=== PATIENT | male | born 1960 | race Caucasian/White ===

== ENCOUNTER → 2017-05-18 | Outpatient (REF) | payer OTHER ==
[~2017-05-18] MED LIST: /PRAV20TA PO; ACET500C PO; AMLO10TAB OR; ASPI325T OR; ASPI325T PO; CARV25TA OR; EXCETAB OR; HYDR25TA7 OR; ISOS30BRAN PO; LISI40TA OR; MECL25TA2 PO; MULTIVIT PO; NITR0.4S SL; PLAV75TA2 OR; PRIL20CA PO; SIMV40TA2 OR; SPIR50TA2 OR
[2017-05-18 20:14] LABS: MEAN CORPUSCULAR HEMOGLOBIN 30.3 pg (27.0-33.0); MEAN CORPUSCULAR HGB CONC 33.8 g/dl (32.0-36.5); MEAN CORPUSCULAR VOLUME 89.7 fl (80.0-96.0); RED CELL DISTRIBUTION WIDTH 12.3 % (11.5-14.5); WHITE BLOOD COUNT 8.8 10^3/uL (4.0-10.0)
[2017-05-18 20:59] LABS: ALBUMIN 3.7 GM/DL (3.2-5.2); ALBUMIN/GLOBULIN RATIO 1.09 (1.00-1.93); BILIRUBIN,TOTAL 0.5 MG/DL (0.2-1.0); CALCIUM LEVEL 8.8 MG/DL (8.5-10.1); CREATININE FOR GFR 1.32 MG/DL (0.70-1.30); FREE T4 1.06 NG/DL (0.76-1.46); GLOMERULAR FILTRATION RATE 59.7 (>56); POTASSIUM SERUM 3.9 MEQ/L (3.5-5.1); TOTAL PROTEIN 7.1 GM/DL (6.4-8.2)
== END ==
LOC: M SFHCLERA 15:55
PROVIDERS: ATTEND Family Medicine
DX: I25.5 Ischemic cardiomyopathy (principal); I25.10 Atherosclerotic heart disease of native coronary artery without angina pectoris

== ENCOUNTER → 2017-05-24 | Outpatient (REF) | payer OTHER ==
[2017-05-24 21:30] LABS: CALCIUM LEVEL 8.8 MG/DL (8.5-10.1); CREATININE FOR GFR 1.5 MG/DL (0.70-1.30); GLOMERULAR FILTRATION RATE 51.5 (>56); POTASSIUM SERUM 3.8 MEQ/L (3.5-5.1)
== END ==
LOC: M SFHCLERA 15:51
PROVIDERS: ATTEND Family Medicine
DX: R39.9 Unspecified symptoms and signs involving the genitourinary system (principal)

== ENCOUNTER → 2017-07-11 | Outpatient (CLI) | payer OTHER ==
--- NOTE | 2017-07-12 08:43 | REP ---
RENAL ULTRASOUND: CLINICAL: Stage III chronic renal disease. TECHNIQUE: Tuttle scale and color evaluation using curved array transducer. FINDINGS: Ultrasound examination demonstrates the bilateral kidneys to be normal in contour, size, echogenicity and reniform shape without hydronephrosis, nephrolithiasis, or renal mass lesion. No perinephric fluid collections are identified. The right kidney measures 11.1 x 5.6 x 5.8 cm and includes a 2 cm simple mid pole cyst. Left kidney measures 11.0 x 5.5 x 4.8 cm and includes a 1.3 cm simple mid pole cyst. The bladder is unremarkable on current examination. IMPRESSION: Solitary bilateral renal cysts as noted above. Essentially normal renal ultrasound. No hydronephrosis. Unreviewed
== END ==
LOC: M RAD 09:10
PROVIDERS: ATTEND Family Medicine
DX: N28.1 Cyst of kidney, acquired (principal); N18.3 Chronic kidney disease, stage 3 (moderate)

== ENCOUNTER → 2017-07-11 | Outpatient (CLI) | payer OTHER ==
--- NOTE | 2017-07-11 21:17 | ECHO ---
DATE OF PROCEDURE: 07/11/2017 REFERRING PHYSICIAN: Dr. Travis Gonzalez Study was performed on 07/11/2017 for indication of coronary artery disease and ischemic cardiomyopathy. The patient measures 170 cm and weighs 104 kg. DIMENSIONS: IVS: 1.3 LV: 4.4 LVPW: 1.2 LA: 3.8 Aorta: 3.6 IVC: 1.0 FINDINGS: The study is of fair technical quality. Left ventricle is of normal size and grossly normal contractility. Apical segments of left ventricle were poorly seen, and I cannot rule out subtle wall motion abnormalities in that area. Overall ejection fraction (EF) is going to be though normal or near normal. Right ventricle is also normal size and systolic function. Both atria appear to be at least mildly enlarged. Aortic, mitral and tricuspid valves appear normal. Pulmonic valve was not well visualized. No pericardial effusion is noted. Inferior vena cava is normal size. Aortic root and aortic arch appear normal. Abdominal aorta was not well seen. Pulmonic valve was not well seen. Doppler interrogation reveals no significant aortic stenosis or insufficiency. There is mild mitral insufficiency and trace tricuspid insufficiency. Calculated pulmonary artery pressure is within normal limits. Mitral inflow pattern and tissue Doppler imaging of mitral annulus revealed grade 1 diastolic dysfunction (mitral E velocity 69, A velocity 80, E prime septal 5.4 and E prime lateral 8.8 cm/s). CONCLUSIONS: 1. Study is of fair technical quality. 2. Normal left ventricular (LV) size with mild left ventricular hypertrophy (LVH) and grossly preserved LV systolic function. Apical segments of left ventricle were poorly seen. Grade 1 diastolic dysfunction. 3. No significant valvular disease. 4. Normal central venous pressure and probably normal pulmonary artery pressure. COMMENTS: Subacute bacterial endocarditis (SBE) prophylaxis is not recommended. Study points to hypertensive heart disease but does not provide conclusive evidence of coronary artery disease.
== END ==
LOC: M CARPUL 10:04
PROVIDERS: ATTEND Family Medicine
DX: I25.5 Ischemic cardiomyopathy (principal); I25.10 Atherosclerotic heart disease of native coronary artery without angina pectoris

== ENCOUNTER → 2017-08-23 | Outpatient (REF) | payer OTHER ==
[2017-08-24 12:20] LABS: ANION GAP 6 MEQ/L (8-16); BLOOD UREA NITROGEN 25 MG/DL (7-18); CARBON DIOXIDE LEVEL 30 MEQ/L (21-32); CHLORIDE LEVEL 106 MEQ/L (98-107); CREATININE FOR GFR 1.36 MG/DL (0.70-1.30); GLOMERULAR FILTRATION RATE 57.5 (>56); GLUCOSE, FASTING 113 MG/DL (70-105); POTASSIUM SERUM 4.1 MEQ/L (3.5-5.1); SODIUM LEVEL 142 MEQ/L (136-145)
[2017-08-24 13:41] LABS: APPEARANCE, URINE CLEAR (CLEAR); BACTERIA, URINE AUTO NEGATIVE (NEGATIVE); BILIRUBIN, URINE AUTO NEGATIVE (NEGATIVE); BLOOD, URINE BLOOD NEGATIVE (NEGATIVE); COLOR, URINE YELLOW (YELLOW); GLUCOSE, URINE (UA) AUTO NEGATIVE (NEGATIVE); KETONE, URINE AUTO NEGATIVE (NEGATIVE); LEUKOCYTE ESTERASE, URINE AUTO NEGATIVE (NEGATIVE); MUCUS, URINE SMALL (NEGATIVE); NITRITE, URINE AUTO NEGATIVE (NEGATIVE); PROTEIN, URINE AUTO NEGATIVE (NEGATIVE); RBC, URINE AUTO 0 /HPF (0-3); SQUAMOUS EPITHELIAL CELL UR AU 0 /HPF (0-6); UROBILINOGEN, URINE AUTO 0.2 mg/dL (0.0-2.0); WBC, URINE AUTO 1 /HPF (0-3)
== END ==
LOC: M SFHCLERA 15:40
DX: N18.3 Chronic kidney disease, stage 3 (moderate) (principal)

== ENCOUNTER 2018-02-09 11:09 | Inpatient (IN) | payer OTHER ==
[2018-02-09 12:00] LABS: BASO % 0.1 % (0.0-1.0); HEMATOCRIT 43.9 % (42.0-52.0); HEMOGLOBIN 15.2 g/dl (13.5-17.5); IMMATURE GRANULOCYTE % 0.3 % (0-3.0); LYMPH % 5.8 % (24.0-44.0); MEAN CORPUSCULAR HEMOGLOBIN 30.7 pg (27.0-33.0); MEAN CORPUSCULAR HGB CONC 34.6 g/dl (32.0-36.5); MEAN CORPUSCULAR VOLUME 88.7 fl (80.0-96.0); MONO # 0.6 10^3/uL (0.0-0.8); MONO % 3.5 % (0.0-5.0); NEUTROPHILS # 15.8 10^3/uL (1.8-7.7); NEUTROPHILS % 90.3 % (36.0-66.0); PLATELET COUNT, AUTOMATED 182 10^3/uL (150-450); RED BLOOD COUNT 4.95 10^6/uL (4.30-6.10); RED CELL DISTRIBUTION WIDTH 12.5 % (11.5-14.5); WHITE BLOOD COUNT 17.5 10^3/uL (4.0-10.0)
[2018-02-09 12:18] LABS: INR 1.04; PARTIAL THROMBOPLASTIN TIME 24.6 SECONDS (25.4-37.6); PROTHROMBIN TIME 13.7 SECONDS (12.1-14.4)
[2018-02-09] MEDS: ONDANSETRON 4MG/2ML VIAL (J2405) IV (12:26)
[2018-02-09] MEDS: MORPHINE 2 MG/ML 1ML SYRINGE (J2270) IV (12:27)
[2018-02-09] MEDS: NS 1,000 ML IV ×3 (12:27→17:30)
[2018-02-09 12:35] LABS: ALBUMIN 3.6 GM/DL (3.2-5.2); ALBUMIN/GLOBULIN RATIO 0.92 (1.00-1.93); ALKALINE PHOSPHATASE 81 U/L (45-117); ALT/SGPT 27 U/L (12-78); AMYLASE 30 U/L (25-115); ANION GAP 9 MEQ/L (8-16); AST/SGOT 20 U/L (7-37); BILIRUBIN,DIRECT 0.2 MG/DL (0.0-0.2); BLOOD UREA NITROGEN 21 MG/DL (7-18); CARBON DIOXIDE LEVEL 27 MEQ/L (21-32); CHLORIDE LEVEL 105 MEQ/L (98-107); CREATININE FOR GFR 1.28 MG/DL (0.70-1.30); GLOMERULAR FILTRATION RATE > 60.0 (>56); GLUCOSE, FASTING 136 MG/DL (70-100); LIPASE 88 U/L (73-393); POTASSIUM SERUM 3.4 MEQ/L (3.5-5.1); SODIUM LEVEL 141 MEQ/L (136-145); TOTAL PROTEIN 7.5 GM/DL (6.4-8.2)
[2018-02-09] MEDS ORDERED: ISOVUE-370 76% 100ML VIAL (Q9967) As Ordered (13:48)
[2018-02-09] MEDS: POTASSIUM CHLORIDE 10 MEQ SR TABLET PO (14:00)
[2018-02-09] MEDS: CIPROFLOXACIN 400 MG in APPROPRIATE DILUENT 1 EA IV (14:25)
[2018-02-09] MEDS: metroNIDAZOLE 500 MG in APPROPRIATE DILUENT 1 EA IV (15:58)
[2018-02-09] MEDS ORDERED: MORPHINE 4 MG/ML 1ML VIAL/SYRINGE (J2270) IV (16:30)
[2018-02-09] MEDS ORDERED: HEPARIN SOD (PORCINE) 5000 UNITS/ML VIAL SC (16:30)
[2018-02-09] MEDS ORDERED: ONDANSETRON 4MG/2ML VIAL (J2405) IV (16:30)
[2018-02-09 18:04] LABS: MEAN CORPUSCULAR HEMOGLOBIN 30.8 pg (27.0-33.0); MEAN CORPUSCULAR VOLUME 87.9 fl (80.0-96.0); PLATELET COUNT, AUTOMATED 160 10^3/uL (150-450); RED BLOOD COUNT 4.55 10^6/uL (4.30-6.10); RED CELL DISTRIBUTION WIDTH 12.4 % (11.5-14.5); WHITE BLOOD COUNT 17.7 10^3/uL (4.0-10.0)
[2018-02-09] MEDS: CARVedilol 12.5 MG TAB PO (21:50)
[2018-02-09 22:28] LABS: HEMATOCRIT 39.9 % (42.0-52.0); MEAN CORPUSCULAR HEMOGLOBIN 31.5 pg (27.0-33.0); MEAN CORPUSCULAR HGB CONC 35.1 g/dl (32.0-36.5); MEAN CORPUSCULAR VOLUME 89.7 fl (80.0-96.0); PLATELET COUNT, AUTOMATED 153 10^3/uL (150-450); RED BLOOD COUNT 4.45 10^6/uL (4.30-6.10); RED CELL DISTRIBUTION WIDTH 12.7 % (11.5-14.5); WHITE BLOOD COUNT 17.8 10^3/uL (4.0-10.0)
[2018-02-10] MEDS: metroNIDAZOLE 500 MG in APPROPRIATE DILUENT 1 EA IV ×2 (00:44→08:20)
[2018-02-10] MEDS: NS 1,000 ML IV ×3 (03:32→22:18)
[2018-02-10] MEDS: CIPROFLOXACIN 400 MG in APPROPRIATE DILUENT 1 EA IV ×2 (03:32→14:23)
[2018-02-10 05:36] LABS: BASO % 0.2 % (0.0-1.0); EOS # 0.1 10^3/uL (0.0-0.50); EOS % 0.4 % (0.0-3.0); HEMATOCRIT 38.2 % (42.0-52.0); HEMOGLOBIN 13.2 g/dl (13.5-17.5); IMMATURE GRANULOCYTE % 0.4 % (0-3.0); LYMPH # 1.5 10^3/uL (1.5-4.5); LYMPH % 10.6 % (24.0-44.0); MEAN CORPUSCULAR HEMOGLOBIN 30.9 pg (27.0-33.0); MEAN CORPUSCULAR HGB CONC 34.6 g/dl (32.0-36.5); MEAN CORPUSCULAR VOLUME 89.5 fl (80.0-96.0); MONO # 0.9 10^3/uL (0.0-0.8); MONO % 6.5 % (0.0-5.0); NEUTROPHILS # 11.3 10^3/uL (1.8-7.7); NEUTROPHILS % 81.9 % (36.0-66.0); PLATELET COUNT, AUTOMATED 164 10^3/uL (150-450); RED BLOOD COUNT 4.27 10^6/uL (4.30-6.10); RED CELL DISTRIBUTION WIDTH 12.6 % (11.5-14.5); WHITE BLOOD COUNT 13.8 10^3/uL (4.0-10.0)
[2018-02-10 05:58] LABS: ANION GAP 6 MEQ/L (8-16); BLOOD UREA NITROGEN 18 MG/DL (7-18); CALCIUM LEVEL 8.1 MG/DL (8.5-10.1); CARBON DIOXIDE LEVEL 28 MEQ/L (21-32); CHLORIDE LEVEL 108 MEQ/L (98-107); CREATININE FOR GFR 1.15 MG/DL (0.70-1.30); GLOMERULAR FILTRATION RATE > 60.0 (>56); GLUCOSE, FASTING 126 MG/DL (70-100); POTASSIUM SERUM 3.5 MEQ/L (3.5-5.1); SODIUM LEVEL 142 MEQ/L (136-145)
[2018-02-10] MEDS: LISINOPRIL 20 MG TAB PO (10:05)
[2018-02-10] MEDS: CARVedilol 12.5 MG TAB PO ×2 (10:05→22:50)
[2018-02-10] MEDS: PANTOPRAZOLE 40MG INJ (PROTONIX) (C9113) IV (10:05)
[2018-02-10 11:12] LABS: HEMATOCRIT 38.9 % (42.0-52.0); HEMOGLOBIN 13.5 g/dl (13.5-17.5); MEAN CORPUSCULAR HEMOGLOBIN 31.3 pg (27.0-33.0); MEAN CORPUSCULAR HGB CONC 34.7 g/dl (32.0-36.5); PLATELET COUNT, AUTOMATED 173 10^3/uL (150-450); RED BLOOD COUNT 4.32 10^6/uL (4.30-6.10); RED CELL DISTRIBUTION WIDTH 12.7 % (11.5-14.5); WHITE BLOOD COUNT 13.2 10^3/uL (4.0-10.0)
[2018-02-10] MEDS: VANCOMYCIN ORAL SOL 250MG/5ML ORAL SYRINGE PO ×3 (12:00→17:33)
[2018-02-10] MEDS: PRAVASTATIN 20 MG TAB PO (22:49)
[2018-02-11] MEDS: VANCOMYCIN ORAL SOL 250MG/5ML ORAL SYRINGE PO ×2 (00:27→05:38)
[2018-02-11] MEDS: NS 1,000 ML IV (08:18)
[2018-02-11] MEDS: ASPIRIN 325 MG TAB PO (08:25)
[2018-02-11] MEDS: CARVedilol 12.5 MG TAB PO (08:25)
[2018-02-11] MEDS: OMEPRAZOLE 20 MG CAP PO (08:25)
[2018-02-11] MEDS: LISINOPRIL 20 MG TAB PO (08:25)
[2018-02-11 08:52] LABS: HEMATOCRIT 38.1 % (42.0-52.0); HEMOGLOBIN 13.2 g/dl (13.5-17.5); MEAN CORPUSCULAR HEMOGLOBIN 30.8 pg (27.0-33.0); MEAN CORPUSCULAR HGB CONC 34.6 g/dl (32.0-36.5); MEAN CORPUSCULAR VOLUME 88.8 fl (80.0-96.0); PLATELET COUNT, AUTOMATED 163 10^3/uL (150-450); RED BLOOD COUNT 4.29 10^6/uL (4.30-6.10); RED CELL DISTRIBUTION WIDTH 12.4 % (11.5-14.5); WHITE BLOOD COUNT 10.8 10^3/uL (4.0-10.0)
[2018-02-11 09:13] LABS: ANION GAP 7 MEQ/L (8-16); BLOOD UREA NITROGEN 16 MG/DL (7-18); CALCIUM LEVEL 7.9 MG/DL (8.5-10.1); CARBON DIOXIDE LEVEL 26 MEQ/L (21-32); CHLORIDE LEVEL 110 MEQ/L (98-107); CREATININE FOR GFR 0.96 MG/DL (0.70-1.30); GLOMERULAR FILTRATION RATE > 60.0 (>56); GLUCOSE, FASTING 129 MG/DL (70-100); POTASSIUM SERUM 3.7 MEQ/L (3.5-5.1); SODIUM LEVEL 143 MEQ/L (136-145)
== END 2018-02-11 10:20 | disposition home or self-care (01) | DRG 248 ==
LOC: M ED 11:09 → M ED INP 16:18 → M MS5PR 22:26
DX: A04.72 Enterocolitis due to Clostridium difficile, not specified as recurrent (principal); I13.0 Hypertensive heart and chronic kidney disease with heart failure and stage 1 through stage 4 chronic kidney disease, or unspecified chronic kidney disease; I50.22 Chronic systolic (congestive) heart failure; N18.3 Chronic kidney disease, stage 3 (moderate); D72.829 Elevated white blood cell count, unspecified; K21.9 Gastro-esophageal reflux disease without esophagitis; I25.10 Atherosclerotic heart disease of native coronary artery without angina pectoris; I25.2 Old myocardial infarction; Z95.2 Presence of prosthetic heart valve; Z79.82 Long term (current) use of aspirin; Z79.899 Other long term (current) drug therapy; I44.7 Left bundle-branch block, unspecified; Z87.891 Personal history of nicotine dependence; A04.0 Enteropathogenic Escherichia coli infection

== ENCOUNTER 2018-04-18 11:51 | Day surgery (SDC) | payer OTHER ==
[~2018-04-18 11:51] MED LIST changes: -/PRAV20TA PO; -ACET500C PO; -AMLO10TAB OR; -ASPI325T OR; -ASPI325T PO; -CARV25TA OR; -EXCETAB OR; -HYDR25TA7 OR; -ISOS30BRAN PO; +LIDOCAINE 2% INJ 100 MG/5 ML SDV (FOR ANES.) As Ordered; -LISI40TA OR; -MECL25TA2 PO; -MULTIVIT PO; -NITR0.4S SL; -PLAV75TA2 OR; -PRIL20CA PO; +PROPOFOL 200 MG/20 ML VIAL As Ordered; -SIMV40TA2 OR; -SPIR50TA2 OR
[2018-04-18] MEDS: NS 1,000 ML IV (12:00)
[2018-04-18] MEDS ORDERED: PROPOFOL 200 MG/20 ML VIAL As Ordered ×2 (14:56→15:07)
== END 2018-04-18 15:54 | disposition home or self-care (01) ==
LOC: M OPP 11:51
DX: R93.3 Abnormal findings on diagnostic imaging of other parts of digestive tract (principal); K62.5 Hemorrhage of anus and rectum; A09 Infectious gastroenteritis and colitis, unspecified; D12.5 Benign neoplasm of sigmoid colon; K57.30 Diverticulosis of large intestine without perforation or abscess without bleeding; K63.89 Other specified diseases of intestine; Z86.19 Personal history of other infectious and parasitic diseases; Z95.5 Presence of coronary angioplasty implant and graft; R07.9 Chest pain, unspecified; I25.10 Atherosclerotic heart disease of native coronary artery without angina pectoris; I25.2 Old myocardial infarction; I10 Essential (primary) hypertension; E78.5 Hyperlipidemia, unspecified; R01.1 Cardiac murmur, unspecified; M19.90 Unspecified osteoarthritis, unspecified site; G43.909 Migraine, unspecified, not intractable, without status migrainosus; F12.10 Cannabis abuse, uncomplicated; Z79.82 Long term (current) use of aspirin; Z79.899 Other long term (current) drug therapy; Z87.891 Personal history of nicotine dependence
CPT/HCPCS: 45385

== ENCOUNTER → 2018-06-21 | Outpatient (REF) | payer OTHER | LOC: M SFHCLERA 08:00 | DX: I12.9 Hypertensive chronic kidney disease with stage 1 through stage 4 chronic kidney disease, or unspecified chronic kidney disease (principal) ==

== ENCOUNTER → 2018-10-17 | Outpatient (REF) | payer OTHER ==
[~2018-10-17] MED LIST changes: +/PRAV20TA PO; +ACET1TAB55 PO; +ACET500C PO; +AMLO10TAB OR; +ASPI325T PO; +ASPI325T25 PO; +CARV12.5 PO; +CARV25TA OR; +EXCETAB OR; +FLAG500T PO; +HYDR25TA7 OR; +ISOS30BRAN PO; -LIDOCAINE 2% INJ 100 MG/5 ML SDV (FOR ANES.) As Ordered; +LISI20TA3 PO; +LISI40TA OR; +MECL25TA2 PO; +MULT1TAB10 PO; +MULTIVIT PO; +NITR0.4S SL; +OMEP20CA3 PO; +PLAV75TA2 OR; +PRAV20TA2 PO; +PRAV40TA2 PO; +PRIL20CA PO; -PROPOFOL 200 MG/20 ML VIAL As Ordered; +SIMV40TA2 OR; +SPIR50TA2 OR; +VANC125C2 PO; +VANC1CAP6 PO
[2018-10-17 11:42] LABS: BASO # 0.1 10^3/uL (0.0-0.2); BASO % 0.9 % (0.0-1.0); EOS # 0.3 10^3/uL (0.0-0.50); EOS % 3.9 % (0.0-3.0); HEMATOCRIT 42.7 % (42.0-52.0); HEMOGLOBIN 14.6 g/dl (13.5-17.5); LYMPH # 1.9 10^3/uL (1.5-4.5); LYMPH % 24.8 % (24.0-44.0); MEAN CORPUSCULAR HGB CONC 34.2 g/dl (32.0-36.5); MEAN CORPUSCULAR VOLUME 90.7 fl (80.0-96.0); MONO # 0.9 10^3/uL (0.0-0.8); MONO % 11.4 % (0.0-5.0); NEUTROPHILS # 4.6 10^3/uL (1.8-7.7); NEUTROPHILS % 58.9 % (36.0-66.0); PLATELET COUNT, AUTOMATED 176 10^3/uL (150-450); RED BLOOD COUNT 4.71 10^6/uL (4.30-6.10); WHITE BLOOD COUNT 7.8 10^3/uL (4.0-10.0)
[2018-10-17 12:05] LABS: ALBUMIN 3.7 GM/DL (3.2-5.2); ALT/SGPT 26 U/L (12-78); BILIRUBIN,TOTAL 0.5 MG/DL (0.2-1.0); BLOOD UREA NITROGEN 28 MG/DL (7-18); CALCIUM LEVEL 8.5 MG/DL (8.5-10.1); CARBON DIOXIDE LEVEL 26 MEQ/L (21-32); CHLORIDE LEVEL 106 MEQ/L (98-107); CHOLESTEROL LEVEL 162 MG/DL (<200); CHOLESTEROL RISK RATIO 5.586 (<5); CREATININE FOR GFR 1.17 MG/DL (0.70-1.30); GLOMERULAR FILTRATION RATE > 60.0 (>56); GLUCOSE, FASTING 106 MG/DL (70-100); HDL CHOLESTEROL 29 MG/DL (>40); LDL CHOLESTEROL 85 MG/DL (<100); NON-HDL-C 133 MG/DL; NT-PRO BNP 27 PG/ML (<125); POTASSIUM SERUM 3.7 MEQ/L (3.5-5.1); SODIUM LEVEL 140 MEQ/L (136-145); TRIGLYCERIDES LEVEL 240 MG/DL (<150)
[2018-10-17 12:15] LABS: MALB URINE SIEMENS 6.9 MG/L; MAU/CREAT RATIO 4.8 MCG/MG (0.0-30.0)
[2018-10-17 14:54] LABS: HEMOGLOBIN A1c 5.7 %
== END ==
LOC: M SFHCLERA 08:05
PROVIDERS: ATTEND Family Medicine
DX: I50.9 Heart failure, unspecified (principal)

== ENCOUNTER → 2018-10-30 | Outpatient (CLI) | payer OTHER ==
--- NOTE | 2018-10-31 00:19 | ECHO ---
DATE OF PROCEDURE: 10/30/2018 REFERRING PHYSICIAN: Dr. Gonzáles INDICATION: Congestive heart failure. Height 170 cm, weight 103 kg. DIMENSIONS: IVS: 1.4 LV: 3.6 LVPW: 1.4 LA: 3.9 Aorta: 3.6 IVC: 1.3 Mitral E wave velocity: 75 E wave velocity: 76 E prime septal: 5.7 E prime lateral: 7.7 FINDINGS: The study is of acceptable technical quality. The patient is in sinus rhythm. Left ventricle is of normal size, and there is mild left ventricular hypertrophy and preserved left ventricular (LV) systolic function. Estimated left ventricular ejection fraction (LVEF) around 65-70%. Right ventricle appears also normal size and systolic function. Left atrium is normal size. Right atrium was poorly seen but grossly appears normal from subcostal views. Aortic valve has three leaflets and normal mobility. There is also normally appearing mitral valve. Same applies for tricuspid valve. Pulmonic valve was poorly seen. No pericardial effusion is present. Inferior vena cava is normal size. Aortic root, aortic arch and abdominal aorta all appear normal. Doppler interrogation of aortic valve reveals no stenosis or insufficiency. There is trace mitral insufficiency and trace tricuspid insufficiency. Calculated pulmonary artery pressure is within normal limits. Mitral inflow pattern and tissue Doppler imaging of mitral annulus revealed likely grade 1 diastolic dysfunction. CONCLUSIONS: 1. Study is of fair technical quality. 2. Normal left ventricular (LV) size with mild left ventricular hypertrophy, preserved LV systolic function and grade 1 diastolic dysfunction. 3. No hemodynamically significant valvular disease. 4. Likely normal central venous pressure and normal pulmonary artery pressure. COMMENT: Subacute bacterial endocarditis (SBE) prophylaxis is not recommended. Overall study most consistent with hypertensive heart disease.
== END ==
LOC: M CARPUL 10:12
PROVIDERS: ATTEND Family Medicine
DX: I50.9 Heart failure, unspecified (principal)

== ENCOUNTER → 2018-11-14 | Outpatient (CLI) | payer OTHER ==
[~2018-11-14] MED LIST changes: -/PRAV20TA PO; +ASPI-255 PO; -ASPI325T25 PO; +PRAV1TAB39 PO; -VANC125C2 PO; +VANC125C3 PO
--- NOTE | 2018-11-14 13:23 | REP ---
Thoracic spine five views: Comparison is a PA and lateral chest dated 02/10/2018. Vertebral body heights and alignment are normal. There is moderate degenerative disc disease throughout the thoracic spine, unchanged. The pedicles are unremarkable. Impression: No compression deformity or listhesis. Multilevel degenerative disc disease. Electronically Signed by Remi Goff MD 11/14/2018 01:15 P
--- NOTE | 2018-11-14 13:26 | REP ---
Lumbar spine seven views: Comparison is the abdomen CT dated 02/09/2018. Vertebral body heights, interspacing alignment are normal. There is no compression deformity or listhesis. There is no spondylolysis. There is multilevel moderate facet osteoarthritis. The pedicles and sacroiliac articulations are unremarkable except for mild left sacroiliac osteoarthritis. Impression: No compression deformity or listhesis. Moderate facet osteoarthritis. Moderate left sacroiliac osteoarthritis. Electronically Signed by Remi Goff MD 11/14/2018 01:17 P
== END ==
LOC: M LRY 12:40
PROVIDERS: ATTEND Physician Assistant
DX: M47.817 Spondylosis without myelopathy or radiculopathy, lumbosacral region (principal); M46.98 Unspecified inflammatory spondylopathy, sacral and sacrococcygeal region

== ENCOUNTER → 2019-02-19 | Outpatient (REF) | payer OTHER ==
[~2019-02-19] MED LIST changes: +LISI20TA20 PO; -LISI20TA3 PO; +OMEP1CAP73 PO; -OMEP20CA3 PO
[2019-02-19 13:01] LABS: BLOOD UREA NITROGEN 19 MG/DL (7-18); CALCIUM LEVEL 8.9 MG/DL (8.5-10.1); CARBON DIOXIDE LEVEL 32 MEQ/L (21-32); CHLORIDE LEVEL 105 MEQ/L (98-107); CHOLESTEROL LEVEL 126 MG/DL (<200); CHOLESTEROL RISK RATIO 3.818 (<5); CREATININE FOR GFR 1.29 MG/DL (0.70-1.30); GLOMERULAR FILTRATION RATE > 60.0 (>56); GLUCOSE, FASTING 129 MG/DL (70-100); HDL CHOLESTEROL 33 MG/DL (>40); LDL CHOLESTEROL 51 MG/DL (<100); NON-HDL-C 93 MG/DL; POTASSIUM SERUM 3.8 MEQ/L (3.5-5.1); SODIUM LEVEL 141 MEQ/L (136-145); TRIGLYCERIDES LEVEL 209 MG/DL (<150)
== END ==
LOC: M SFHCLERA 08:05
PROVIDERS: ATTEND Family Medicine
DX: E78.5 Hyperlipidemia, unspecified (principal); I12.9 Hypertensive chronic kidney disease with stage 1 through stage 4 chronic kidney disease, or unspecified chronic kidney disease

== ENCOUNTER → 2019-07-24 | Outpatient (REF) | payer OTHER ==
[~2019-07-24] MED LIST changes: +OMEP-172 PO; -OMEP1CAP73 PO
[2019-07-24 11:32] LABS: BLOOD UREA NITROGEN 17 MG/DL (7-18); CALCIUM LEVEL 8.9 MG/DL (8.5-10.1); CARBON DIOXIDE LEVEL 31 MEQ/L (21-32); CHLORIDE LEVEL 105 MEQ/L (98-107); CHOLESTEROL LEVEL 101 MG/DL (<200); CREATININE FOR GFR 1.13 MG/DL (0.70-1.30); GLOMERULAR FILTRATION RATE > 60.0 (>56); GLUCOSE, FASTING 107 MG/DL (70-100); HDL CHOLESTEROL 34 MG/DL (>40); LDL CHOLESTEROL 47 MG/DL (<100); NON-HDL-C 67 MG/DL; POTASSIUM SERUM 3.8 MEQ/L (3.5-5.1); SODIUM LEVEL 141 MEQ/L (136-145); TRIGLYCERIDES LEVEL 101 MG/DL (<150)
== END ==
LOC: M SFHCLERA 08:18
PROVIDERS: ATTEND Family Medicine
DX: I12.9 Hypertensive chronic kidney disease with stage 1 through stage 4 chronic kidney disease, or unspecified chronic kidney disease (principal)

== ENCOUNTER 2019-12-03 14:27 | Inpatient (IN) | payer OTHER ==
[~2019-12-03] VITALS: Ht 170.2 cm; Wt 108.8 kg
[~2019-12-03 14:27] MED LIST changes: -OMEP-172 PO; +OMEP1CAP73 PO
[2019-12-03] MEDS ORDERED: doesnt know meds (14:37)
[2019-12-03] MEDS ORDERED: NS 1,000 ML IV ONE (15:00)
[2019-12-03] MEDS ORDERED: AMLO25TA PO (15:01)
[2019-12-03] MEDS ORDERED: EZET10TA21 PO (15:01)
[2019-12-03] MEDS ORDERED: ISOVUE-370 76% 100ML VIAL As Ordered ONE (15:35)
[2019-12-03 15:39] LABS: INR 0.98; PROTHROMBIN TIME 12.7 SECONDS (11.8-14.0)
[2019-12-03 15:40] LABS: PARTIAL THROMBOPLASTIN TIME 26.7 SECONDS (25.0-38.4)
[2019-12-03 15:52] LABS: ALBUMIN 3.9 GM/DL (3.2-5.2); BILIRUBIN,DIRECT 0.2 MG/DL (0.0-0.2); BILIRUBIN,TOTAL 0.9 MG/DL (0.2-1.0); TOTAL PROTEIN 7.7 GM/DL (6.4-8.2)
[2019-12-03 15:59] LABS: BASO % 0.2 % (0.0-1.0); HEMATOCRIT 48.5 % (42.0-52.0); HEMOGLOBIN 16.5 g/dl (13.5-17.5); LYMPH # 0.8 10^3/uL (1.5-5.0); LYMPH % 4.6 % (24.0-44.0); MEAN CORPUSCULAR HEMOGLOBIN 30.3 pg (27.0-33.0); MEAN CORPUSCULAR VOLUME 89.2 fl (80.0-96.0); MONO # 0.4 10^3/uL (0.0-0.8); MONO % 2.3 % (0.0-5.0); NEUTROPHILS # 16.7 10^3/uL (1.5-8.5); NEUTROPHILS % 92.5 % (36.0-66.0); PLATELET COUNT, AUTOMATED 216 10^3/uL (150-450); RED BLOOD COUNT 5.44 10^6/uL (4.30-6.10); WHITE BLOOD COUNT 18.1 10^3/uL (4.0-10.0)
[2019-12-03] MEDS ORDERED: CIPROFLOXACIN 400 MG in IV 1 EA IV ONE (16:45)
[2019-12-03] MEDS ORDERED: metroNIDAZOLE 500 MG in IV 1 EA IV ONE (16:45)
[2019-12-03] MEDS ORDERED: MORPHINE 4 MG/ML 1ML VIAL/SYRINGE (J2270) IV PRN (17:00)
[2019-12-03] MEDS ORDERED: ONDANSETRON 4MG/2ML VIAL IV PRN (17:00)
--- NOTE | 2019-12-03 17:03 | REP ---
REASON: Left lower quadrant pain. CONTRAST: 100 mL [id number]. COMPARISON: 02/09/2018 There is no change in the lung bases. The liver, gallbladder, spleen, pancreas, adrenal glands, and kidneys are unchanged. There are bilateral renal cysts, status quo. The abdominal aorta and para-aortic regions are unchanged. There is focal ectasia of the infrarenal abdominal aorta, which measures 2.9 cm in its greatest AP dimension. There is no para-aortic adenopathy. Once again, there is mural thickening of the distal transverse and descending colon with pericolonic fatty infiltration, seen in a fashion essentially unchanged from the prior exam. No free fluid or free air is present. Note is again made of rather extensive appearing sigmoid colon and descending colon diverticulosis. There is no evidence of an intrapelvic or intra-abdominal mass or adenopathy. The osseous structures are unchanged. There is some evidence of chronic bilateral sacroiliitis seen as areas of sclerosis in both sacral and iliac sides of the SI joints. This is stable. IMPRESSION: 1. Distal transverse colon and descending colon mural thickening with fatty infiltration, consistent with colitis. The appearance of this is essentially unchanged when compared to the prior exam of 02/09/2018. 2. Unchanged bilateral renal cysts. 3. Evidence of chronic sacroiliitis. Does the patient have a history of Crohn disease or other inflammatory bowel disease which can be associated with chronic sacroiliitis? Electronically Signed by Akash Howe DO 12/04/2019 08:59 A
--- NOTE | 2019-12-03 17:11 | HPEPDOC ---
General Date of Admission Date of Service: Dec 03, 2019 Chief Complaint The patient is a 59-year-old male admitted with a reason for visit of Rectal bleeding. Source: Patient, Old records Exam Limitations: No limitations Timing/Duration: Other (since last night) Severity: Moderate Associated Symptoms: Nausea, Other (, abdominal pain) History of Present Illness This is a 59 years old white male with past medical history of coronary artery disease status post RI, status post PCI with stent, chronic systolic congestive heart failure with EF of 30%. CK D, stage III, hypertension, GERD, he was a colostomy admitted with the similar complaints in 02/09/2018 and again he presented with chief complaints of rectal bleeding with some nausea and lower abdominal pain. According to patient, he noticed bright blood blood per rectum since last night followed by some nausea and generalized burning abdominal pain at the lower abdomen with no radiation, 7/10 on a scale not relieved with any food arrest and not exacerbated by any position, associated with nausea but no vomiting, no diarrhea. Home Medications Scheduled Amlodipine Besylate (Amlodipine Besylate) 2.5 Mg Tablet, 2.5 MG PO DAILY, (Reported) Aspirin (Aspirin EC) 325 Mg Tabec, 325 MG PO DAILY, (Reported) Carvedilol (Carvedilol) 12.5 Mg Tab, 12.5 MG PO BID, (Reported) Ezetimibe (Ezetimibe) 10 Mg Tablet, 10 MG PO DAILY, (Reported) Lisinopril/Hydrochlorothiazide (Lisinopril-Hctz 20-25 mg Tab) 1 Tab Tab, 1 TAB PO DAILY, (Reported) Multivitamins (Thera M Plus Tablet) 1 Each Tablet, 1 TAB PO DAILY, (Reported) Omeprazole (Omeprazole) 20 Mg Cap, 20 MG PO DAILY, (Reported) Pravastatin Sodium (Pravastatin Sodium) 80 Mg Tablet, 80 MG PO QHS, (Reported) Allergies Coded Allergies: No Known Allergies (Verified , 03/08/11) Past Medical History Medical History CAD status post RI, status post PCI with stent, chronic congestive heart failure with EF of 30%, security stage III, hypertension, GERD, old left bundle branch block, ORIF of left ankle Surgical History ORIF of left ankle Colonoscopy in 2018 Family History Family history reviewed. No history of diabetes or cancer or GI bleed Social History * Smoker: former Smoker Alcohol: Denies Drugs: denies A-FIB/CHADSVASC A-FIB History Current/History of A-Fib/PAF?: No Review of Systems Constitutional: Denies: Chills, Fever, Malaise, Night Sweats, Weakness, Fatigue, Weight Loss, Lethargy, Other Eyes: Denies: Pain, Vision change, Conjunctivae inflammation, Eyelid inflammation, Redness, Other ENT: Denies: Head Aches, Ear Pain, Dysphagia, Sinus Congestion, Post Nasal Drip, Sore Throat, Epistaxis, Other Symptoms Skin: Denies: Rash, Lesions, Jaundice, Bruising, Itching, Dry, Breakdown, Nail Changes, Other Pulmonary: Denies: Dyspnea, Cough, Pleuritic Chest Pain, Other Symptoms Cardiovascular: Denies: Chest Pain, Palpitations, Orthopnea, Paroxysmal Noc. Dyspnea, Edema, Lt Headedness, Other Symptoms Gastrointestinal: Reports: Nausea, Abdominal Pain, Other Symptoms (, rectal bleed) Genitourinary: Denies: Dysuria, Frequency, Incontinence, Hematuria, Retention, Other Symptoms Hematologic: Denies: Bruising, Bleeding Excessively, Petecchia, Purpura, Enlarged Lymph Nodes, Other Hematologic Endocrine: Denies: Polydipsia, Polyphagia, Polyuria, Heat Intolerance, Cold Intolerance, Other Endocrine Sx Musculoskeletal: Denies: Neck Pain, Back Pain, Shoulder Pain, Arm Pain, Hand Pain, Leg Pain, Foot Pain, Joint Pain, Muscle Pain, Spasms, Other Symptoms Neurological: Denies: Weakness, Numbness, Incoordination, Change in speech, Confusion, Seizures, Other Symptoms Physical Examination General Exam: Positive: Alert, Cooperative Eye Exam: Positive: PERRLA, Conjunctiva & lids normal ENT Exam: Positive: Atraumatic, Mucous membr. moist/pink Neck Exam: Positive: Supple Chest Exam: Positive: Clear to auscultation, Normal air movement Heart Exam: Positive: Rate Normal Abdomen Exam: Positive: Soft, Tenderness (positive tenderness at the bilateral lower abdomen on polyps. Patient has slight distention of abdomen. Bowel sounds are exaggerated) Extremity Exam: Positive: Normal pulses Skin Exam: Positive: Nl turgor and temperature Neuro Exam: Positive: Strength at 5/5 X4 ext, Cranial Nerves 3-12 NL Psych Exam: Positive: Mental status NL Vital Signs Vital Signs Date Time Temp Pulse Resp B/P (MAP) Pulse Ox O2 Delivery O2 Flow Rate FiO2 4/28/20 16:13 66 188/86 (120) 77 163/71 (101) 71 143/76 (98) 12/03/19 14:51 Room Air 12/03/19 14:28 97.3 16 98 Laboratory Data Labs 24H Laboratory Tests 2 12/03/19 15:04: Immature Granulocyte % (Auto) 0.4, Neutrophils (%) (Auto) 92.5H, Lymphocytes (%) (Auto) 4.6L, Monocytes (%) (Auto) 2.3, Eosinophils (%) (Auto) 0.0, Basophils (%) (Auto) 0.2, Neutrophils # (Auto) 16.7H, Lymphocytes # (Auto) 0.8L, Monocytes # (Auto) 0.4, Eosinophils # (Auto) 0.0, Basophils # (Auto) 0.0, Nucleated Red Blood Cells % (auto) 0.0 12/03/19 15:05: Prothrombin Time 12.7, Prothromb Time International Ratio 0.98, Activated Partial Thromboplast Time 26.7, Total Bilirubin 0.9, Direct Bilirubin 0.2, Aspartate Amino Transf (AST/SGOT) 22, Alanine Aminotransferase (ALT/SGPT) 28, Alkaline Phosphatase 87, Total Protein 7.7, Albumin 3.9, Albumin/Globulin Ratio 1.03 12/03/19 15:10: POC Glucose (Misc Panel) 153H, POC Sodium (Misc Panel) 139, POC Potassium (Misc Panel) 3.6, POC Chloride (Misc Panel) 101, POC Total CO2 (Misc Panel) 26.0, POC Blood Urea Nitrogen (Misc Panel 22, POC Ionized Calcium (Misc Panel) 4.6, POC Lactate (Misc Panel) 1.90, POC Creatinine (Misc Panel) 0.9, POC Hematocrit (Misc Panel) 48.0 CBC/BMP Laboratory Tests 12/03/19 15:04 Problems (1) Acute hemorrhagic colitis Status: Acute Problem Text: 59 years old white male presented with hemorrhagic colitis. Patient had been admitted in 2018 with a similar complaint and his colitis and resolved with IV antibiotics. Following that he had outpatient colonoscopy done with Dr. ochoa on 04/18/2018, which showed moderate diverticulosis in sigmoid colon and descending colon muscle while hypertrophy and mild lumen narrowing, 110 mm polyp in sigmoid colon, which was resected with hot snare and retrieved. Admit patient to [facility] floor with telemetry H&H every 8 hours for at least 24 hours IV fluids normal saline at 75 mL per hour Transfuse if H&H drops under 7 Patient has been started on Cipro and Flagyl and will continue the same . Patient's WBC count on presentation was 18.1. This is CBC otherwise normal with normal CMP Patient was treated with similar episode in 2018, but he did not follow with GI for colonoscopy GI consult with Dr. Devante Dodd has been requested for possible colonoscopy once is clinically stable . We'll continue patient's home meds DVT prophylaxis with bilateral SCDs Nothing by mouth except meds Activity as tolerated (2) Chronic systolic CHF (congestive heart failure) Status: Chronic Problem Text: Well compensated Continue home meds (3) HTN (hypertension) Status: Chronic Problem Text: Continue home meds (4) CKD (chronic kidney disease) stage 3, GFR 30-59 ml/min Status: Chronic Problem Text: Stable continue home meds (5) CAD (coronary artery disease) Status: Chronic Problem Text: Stable continue home meds (6) Chronic GERD Status: Chronic Problem Text: Stable continue home meds Plan / VTE VTE Prophylaxis Ordered?: Yes VANIA LAWSON MD Dec 03, 2019 17:11
[2019-12-03] MEDS ORDERED: PRAV80TA2 PO (17:18)
[2019-12-03] MEDS ORDERED: VITMTA PO (17:18)
[2019-12-03] MEDS: CARVedilol 12.5 MG TAB PO SCH (18:29)
[2019-12-03] MEDS: NS 1,000 ML IV SCH (19:37)
[2019-12-03] MEDS ORDERED: ACETAMINOPHEN TAB 650MG DOSE (2X325MG) PO PRN (19:45)
[2019-12-03] MEDS: PRAVASTATIN 20 MG TAB PO SCH (20:52)
[2019-12-03 21:23] LABS: HEMATOCRIT 41.9 % (42.0-52.0); MEAN CORPUSCULAR HEMOGLOBIN 30.6 pg (27.0-33.0); MEAN CORPUSCULAR HGB CONC 34.4 g/dl (32.0-36.5); PLATELET COUNT, AUTOMATED 182 10^3/uL (150-450); RED BLOOD COUNT 4.71 10^6/uL (4.30-6.10)
[2019-12-03 21:36] LABS: HEMOGLOBIN 14.4 g/dl (13.5-17.5)
[2019-12-03 22:00] VITALS: BP 146/70
[2019-12-04] MEDS: metroNIDAZOLE 500 MG in IV 1 EA IV SCH ×3 (01:33→17:33)
[2019-12-04] MEDS: CIPROFLOXACIN 400 MG in IV 1 EA IV SCH ×2 (05:13→18:52)
[2019-12-04] MEDS: CARVedilol 12.5 MG TAB PO SCH ×2 (05:13→17:34)
[2019-12-04] MEDS: NS 1,000 ML IV SCH ×2 (05:13→20:36)
[2019-12-04 06:00] VITALS: BP 164/94
[2019-12-04 06:03] LABS: HEMATOCRIT 41.9 % (42.0-52.0); HEMOGLOBIN 14.2 g/dl (13.5-17.5); MEAN CORPUSCULAR HEMOGLOBIN 30.5 pg (27.0-33.0); MEAN CORPUSCULAR HGB CONC 33.9 g/dl (32.0-36.5); MEAN CORPUSCULAR VOLUME 90.1 fl (80.0-96.0); PLATELET COUNT, AUTOMATED 171 10^3/uL (150-450); RED BLOOD COUNT 4.65 10^6/uL (4.30-6.10); WHITE BLOOD COUNT 15.7 10^3/uL (4.0-10.0)
[2019-12-04 06:50] LABS: ALT/SGPT 23 U/L (12-78); BILIRUBIN,TOTAL 0.7 MG/DL (0.2-1.0); BLOOD UREA NITROGEN 18 MG/DL (7-18); CALCIUM LEVEL 8.4 MG/DL (8.5-10.1); CARBON DIOXIDE LEVEL 28 MEQ/L (21-32); CHLORIDE LEVEL 106 MEQ/L (98-107); CREATININE FOR GFR 0.97 MG/DL (0.70-1.30); GLOMERULAR FILTRATION RATE > 60.0 (>56); GLUCOSE, FASTING 133 MG/DL (70-100); POTASSIUM SERUM 3.5 MEQ/L (3.5-5.1); SODIUM LEVEL 138 MEQ/L (136-145); TOTAL PROTEIN 6.1 GM/DL (6.4-8.2)
[2019-12-04 06:52] VITALS: BP 142/88
[2019-12-04] MEDS: ASPIRIN 325 MG TAB PO SCH (08:57)
[2019-12-04] MEDS: OMEPRAZOLE 20 MG CAP PO SCH (08:57)
[2019-12-04 14:00] VITALS: BP 154/92
--- NOTE | 2019-12-04 15:45 | IPNPDOC ---
Subjective Date Seen The patient was seen on 12/04/19. Subjective Chief Complaint/HPI Patient feels much better wishes to restart eating now. His WBC count also has gone down General: Denies: ROS Unobtainable, Chills, Night Sweats, Fatigue, Malaise, Normal Appetite, Other Symptoms Constitutional: Denies: Chills, Fever, Malaise, Night Sweats, Weakness, Fatigue, Weight Loss, Lethargy, Other Skin: Denies: Rash, Lesions, Jaundice, Bruising, Itching, Dry, Breakdown, Nail Changes, Other Pulmonary: Denies: Dyspnea, Cough, Pleuritic Chest Pain, Other Symptoms Cardiovascular: Denies: Chest Pain, Palpitations, Orthopnea, Paroxysmal Noc. Dyspnea, Edema, Lt Headedness, Other Symptoms Gastrointestinal: Reports: Abdominal Pain Genitourinary: Denies: Dysuria, Frequency, Incontinence, Hematuria, Retention, Other Symptoms Hematologic: Denies: Bruising, Bleeding Excessively, Petecchia, Purpura, Enlarged Lymph Nodes, Other Hematologic Musculoskeletal: Denies: Neck Pain, Back Pain, Shoulder Pain, Arm Pain, Hand Pain, Leg Pain, Foot Pain, Joint Pain, Muscle Pain, Spasms, Other Symptoms Neurological: Denies: Weakness, Numbness, Incoordination, Change in speech, Confusion, Seizures, Other Symptoms Objective Physical Examination General Exam: Positive: Alert, Cooperative Eye Exam: Positive: PERRLA, Conjunctiva & lids normal ENT Exam: Positive: Atraumatic, Mucous membr. moist/pink Neck Exam: Positive: Supple Chest Exam: Positive: Clear to auscultation, Normal air movement Heart Exam: Positive: Rate Normal Abdomen Exam: Positive: Soft, Tenderness (positive tenderness at the bilateral lower abdomen on polyps. Patient has slight distention of abdomen. Bowel sounds are exaggerated) Extremity Exam: Positive: Normal pulses Skin Exam: Positive: Nl turgor and temperature Neuro Exam: Positive: Strength at 5/5 X4 ext, Cranial Nerves 3-12 NL Psych Exam: Positive: Mental status NL Assessment /Plan Problems (1) Acute hemorrhagic colitis Status: Acute Problem Text: Patient is improving very well Continue IV fluids Start clear liquid diet Continue IV antibiotics, Cipro and Flagyl Spoke with Dr. Devante Dodd. 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 Continue present meds Once patient is clinically stable and will be discharged and can get the repeat colonoscopy done as an outpatient (2) Chronic systolic CHF (congestive heart failure) Status: Chronic Problem Text: Stable continue home meds (3) Chronic GERD Status: Chronic Problem Text: Stable continue home meds (4) HTN (hypertension) Status: Chronic Problem Text: Stable continue home meds (5) CKD (chronic kidney disease) stage 3, GFR 30-59 ml/min Status: Chronic Problem Text: Continue home meds (6) CAD (coronary artery disease) Status: Chronic Problem Text: Continue home meds Plan/VTE VTE Prophylaxis Ordered?: Yes VS, I&O, 24H, Fishbone Vital Signs/I&O Vital Signs Date Time Temp Pulse Resp B/P (MAP) Pulse Ox O2 Delivery O2 Flow Rate FiO2 12/04/19 14:00 99.1 58 18 154/92 (112) 97 Room Air I&O- Last 24 Hours up to 6 AM 12/04/19 06:00 Intake Total 2025 ml Output Total 325 ml Balance 1700 ml Laboratory Data 24H LABS Laboratory Tests 2 12/03/19 21:00: Nucleated Red Blood Cells % (auto) 0.0 12/04/19 05:38: Nucleated Red Blood Cells % (auto) 0.0, Anion Gap 4L, Glomerular Filtration Rate > 60.0, Calcium Level 8.4L, Total Bilirubin 0.7, Aspartate Amino Transf (AST/SGOT) 15, Alanine Aminotransferase (ALT/SGPT) 23, Alkaline Phosphatase 67, Total Protein 6.1#L, Albumin 3.0#L, Albumin/Globulin Ratio 0.97L CBC/BMP Laboratory Tests 12/03/19 21:00 12/04/19 05:38 VANIA LAWSON MD Dec 04, 2019 15:45
--- NOTE | 2019-12-04 16:39 | ECGEPIP ---
[facility] - ED Test Date: 2019-12-03 Pat Name: FRITZ DOWNS Department: Room: - Gender: Male [employer]: CT : 1960 Requested By: GREGG SALEH PA-C. Order Number: [id number] Reading MD: Fabi Walker Measurements Intervals [place] Rate: 65 P: 64 ND: 168 QRS: -12 QRSD: 95 T: 49 QT: 403 QTc: 420 Interpretive Statements SINUS RHYTHM WITH SINUS ARRHYTHMIA NSTTW abnormalities NO PRIOR Electronically Signed on 12-04-2019 16:39:10 EDT by Fabi Walker
[2019-12-04] MEDS: PRAVASTATIN 20 MG TAB PO SCH (20:36)
[2019-12-04 22:00] VITALS: BP 159/91
[2019-12-05] MEDS: metroNIDAZOLE 500 MG in IV 1 EA IV SCH ×2 (00:33→08:15)
[2019-12-05 05:28] VITALS: BP 159/91
[2019-12-05] MEDS: CARVedilol 12.5 MG TAB PO SCH (05:28)
[2019-12-05] MEDS: CIPROFLOXACIN 400 MG in IV 1 EA IV SCH (05:28)
[2019-12-05 06:00] VITALS: BP 159/90
[2019-12-05] MEDS: OMEPRAZOLE 20 MG CAP PO SCH (08:15)
[2019-12-05] MEDS: ASPIRIN 325 MG TAB PO SCH (08:15)
[2019-12-05] MEDS ORDERED: CIPR-249 PO (10:27)
[2019-12-05] MEDS ORDERED: FLAG500T PO (10:27)
--- NOTE | 2019-12-05 12:03 | DS.PDOC ---
Discharge Summary General Date of Admission Dec 03, 2019 at 16:52 Date of Discharge 12/05/19 Discharge Summary PROCEDURES PERFORMED DURING STAY: None. ADMITTING DIAGNOSES: 1. Acute hemorrhagic colitis. DISCHARGE DIAGNOSES: 1. Acute hemorrhagic colitis, CAD, chronic systolic congestive heart failure, CK D3, hypertension, GERD COMPLICATIONS/CHIEF COMPLAINT: Acute Hemorrhagic Colitis. HISTORY OF PRESENT ILLNESS: This is a 59 years old white male with past medical history of coronary artery disease status post ND, status post PCI with stent, chronic systolic congestive heart failure with EF of 30%. CK D, stage III, hypertension, GERD, he was a colostomy admitted with the similar complaints in 02/09/2018 and again he presented with chief complaints of rectal bleeding with some nausea and lower abdominal pain. According to patient, he noticed bright blood blood per rectum since last night followed by some nausea and generalized burning abdominal pain at the lower abdomen with no radiation, 7/10 on a scale not relieved with any food arrest and not exacerbated by any position, associated with nausea but no vomiting, no diarrhea.. HOSPITAL COURSE: She was admitted with the diagnosis of hemorrhagic colitis. He had a colonoscopy done and past few years and had 1 polyp which was removed. Otherwise was negative. Patient was started on IV fluids, IV antibiotics and kept nothing by mouth initially. Patient responded very well to the conservative medical management. His abdominal pain has lessened in last 3 days. He was restarted on his regular diet which he tolerated very well. His WBC count has come down to 15.7. He is asymptomatic, afebrile and wishes to go home. Patient. Patient will be discharged home on by mouth Cipro, Flagyl for 7 more days and has been advised to continue low residue diet and follow with his GI and PCP in one week.. DISCHARGE MEDICATIONS: Please see below. ALLERGIES: Please see below. PHYSICAL EXAMINATION ON DISCHARGE: VITAL SIGNS: Please see below. GENERAL: Within normal limits HEENT: PERRLA. Extraocular muscles intact NECK: Supple CARDIOVASCULAR EXAMINATION: S1, S2, regular RESPIRATORY EXAMINATION: Clear to A&P ABDOMINAL EXAMINATION: , Soft, nontender, bowel sounds present. No organomegaly EXTREMITIES: Normal SKIN: Normal NEUROLOGICAL EXAMINATION: Focal motor sensory deficit PSYCHIATRIC EXAMINATION: Normal LABORATORY DATA: Please see below. IMAGING: CT abdomen and pelvis:1. Distal transverse colon and descending colon mural thickening with fatty infiltration, consistent with colitis. The appearance of this is essentially unchanged when compared to the prior exam of 02/09/2018. 2. Unchanged bilateral renal cysts. 3. Evidence of chronic sacroiliitis. Does the patient have a history of Crohn disease or other inflammatory bowel disease which can be associated with chronic sacroiliitis? PROGNOSIS: Good ACTIVITY: As tolerated. DIET: Low residue diet DISCHARGE PLAN: Discharged home DISPOSITION: 01 Home, Self-Care. DISCHARGE INSTRUCTIONS: 1. As per discharge instructions. ITEMS TO FOLLOWUP ON ON OUTPATIENT: 1. Follow with his PCP and GI in one week as an outpatient. DISCHARGE CONDITION: Stable. TIME SPENT ON DISCHARGE: 39 minutes. Vital Signs/I&Os Vital Signs Date Time Temp Pulse Resp B/P (MAP) Pulse Ox O2 Delivery O2 Flow Rate FiO2 12/05/19 06:00 98.0 66 18 159/90 (113) 96 Room Air I&O- Last 24 Hours up to 6 AM 12/05/19 06:00 Intake Total 2405 ml Output Total 1450 ml Balance 955 ml Discharge Medications Scheduled Amlodipine Besylate (Amlodipine Besylate) 2.5 Mg Tablet, 2.5 MG PO DAILY, (Reported) Aspirin (Aspirin EC) 325 Mg Tabec, 325 MG PO DAILY, (Reported) Carvedilol (Carvedilol) 12.5 Mg Tab, 12.5 MG PO BID, (Reported) Ciprofloxacin HCl (Cipro) 500 Mg Tablet, 500 MG PO BID Ezetimibe (Ezetimibe) 10 Mg Tablet, 10 MG PO DAILY, (Reported) Lisinopril/Hydrochlorothiazide (Lisinopril-Hctz 20-25 mg Tab) 1 Tab Tab, 1 TAB PO DAILY, (Reported) Metronidazole (Flagyl) 500 Mg Tablet, 1 TAB PO BID Multivitamins (Thera M Plus Tablet) 1 Each Tablet, 1 TAB PO DAILY, (Reported) Omeprazole (Omeprazole) 20 Mg Cap, 20 MG PO DAILY, (Reported) Pravastatin Sodium (Pravastatin Sodium) 80 Mg Tablet, 80 MG PO QHS, (Reported) Allergies Coded Allergies: No Known Allergies (Verified , 03/08/11) VANIA LAWSON MD Dec 05, 2019 12:03
== END 2019-12-05 11:40 | disposition home or self-care (01) | DRG 249 ==
LOC: M ED 14:27 → M ED INP 16:52 → ENRESERV 18:03 → M MSPAV 18:42
PROVIDERS: ADMIT Internal Medicine; ATTEND Internal Medicine
DX: K52.9 Noninfective gastroenteritis and colitis, unspecified (principal); I13.0 Hypertensive heart and chronic kidney disease with heart failure and stage 1 through stage 4 chronic kidney disease, or unspecified chronic kidney disease; I50.32 Chronic diastolic (congestive) heart failure; N18.3 Chronic kidney disease, stage 3 (moderate); I25.10 Atherosclerotic heart disease of native coronary artery without angina pectoris; K21.9 Gastro-esophageal reflux disease without esophagitis; I25.2 Old myocardial infarction; Z95.2 Presence of prosthetic heart valve; Z79.899 Other long term (current) drug therapy; Z79.82 Long term (current) use of aspirin

== ENCOUNTER 2019-12-08 00:49 | Emergency (ER) | payer OTHER ==
[~2019-12-08] VITALS: Ht 170.2 cm; Wt 109.1 kg
[~2019-12-08 00:49] MED LIST changes: +AMLO25TA PO; +CIPR-249 PO; +EZET10TA21 PO; +PRAV80TA2 PO; +VITMTA PO; +doesnt know meds
[2019-12-08] MEDS ORDERED: KETOROLAC 30 MG/ML 1ML VIAL IV ONE (03:00)
[2019-12-08 04:08] LABS: BLOOD UREA NITROGEN 18 MG/DL (7-18); CALCIUM LEVEL 8.4 MG/DL (8.5-10.1); CARBON DIOXIDE LEVEL 29 MEQ/L (21-32); CHLORIDE LEVEL 106 MEQ/L (98-107); CPK CREATINE PHOSPHOKINASE 138 U/L (39-308); CREATININE FOR GFR 0.98 MG/DL (0.70-1.30); GLOMERULAR FILTRATION RATE > 60.0 (>56); GLUCOSE, FASTING 120 MG/DL (70-100); MAGNESIUM LEVEL 1.9 MG/DL (1.8-2.4); POTASSIUM SERUM 3.7 MEQ/L (3.5-5.1); SODIUM LEVEL 140 MEQ/L (136-145)
[2019-12-08] MEDS ORDERED: AUGM875T28 PO (04:51)
[2019-12-08 05:13] VITALS: BP 139/79
== END 2019-12-08 05:14 | disposition home or self-care (01) ==
LOC: M ED 00:49
DX: R25.2 Cramp and spasm (principal); K52.9 Noninfective gastroenteritis and colitis, unspecified; F17.210 Nicotine dependence, cigarettes, uncomplicated; Z79.899 Other long term (current) drug therapy
CPT/HCPCS: 80048; 82550; 83735; 96374; 99284; J1885

== ENCOUNTER → 2020-12-31 | Outpatient (CLI) | payer OTHER ==
[~2020-12-31] MED LIST changes: +AUGM875T28 PO; +GOOD81CH2 PO; +PROBCAP14 PO
== END ==
LOC: M LABSMTC 11:54
PROVIDERS: ATTEND Anesthesiology
DX: Z01.818 Encounter for other preprocedural examination (principal); Z11.52 Encounter for screening for COVID-19

== ENCOUNTER 2021-01-05 07:54 | Day surgery (SDC) | payer OTHER ==
[~2021-01-05] VITALS: Ht 170.2 cm; Wt 98.9 kg
[~2021-01-05 07:54] MED LIST changes: +NS 1,000 ML IV ONE
[2021-01-05] MEDS ORDERED: LIDOCAINE 2% 100MG/5ML SDV (FOR ANES.) As Ordered ONE (08:53)
[2021-01-05] MEDS ORDERED: propofoL 200 MG/20 ML VIAL As Ordered ONE ×2 (08:53→09:07)
--- NOTE | 2021-01-05 09:41 | ROOR ---
Patient Name: Jaleel Mayberry Procedure Date: 01/05/2021 9:00 AM Date of : 1960 Age: 60 Room: [facility] Gender: Male Note Status: Finalized Procedure: Colonoscopy Indications: Abnormal CT of the GI tract, Follow-up of ischemic colitis Providers: Daryn Lopez MD Referring MD: RUTH JACOBS MD Requesting Provider: Medicines: Monitored Anesthesia Care Complications: No immediate complications. Procedure: Pre-Anesthesia Assessment: - The heart rate, respiratory rate, oxygen saturations, blood pressure, adequacy of pulmonary ventilation, and response to care were monitored throughout the procedure. The Colonoscope was introduced through the anus and advanced to 10 cm into the ileum. The colonoscopy was performed without difficulty. The patient tolerated the procedure well. The quality of the bowel preparation was good. Findings: The perianal and digital rectal examinations were normal. Five sessile polyps were found in the hepatic flexure, ascending colon and cecum. The polyps were diminutive in size. These polyps were removed with a cold snare. Resection and retrieval were complete. Multiple small and large-mouthed diverticula were found in the sigmoid colon. There was evidence of diverticular spasm. Internal hemorrhoids were found during retroflexion. The hemorrhoids were moderate. The exam was otherwise without abnormality on direct and retroflexion views. Biopsies for histology were taken with a cold forceps from the transverse colon, descending colon and sigmoid colon for evaluation of microscopic colitis. Impression: - Five diminutive polyps at the hepatic flexure, in the ascending colon and in the cecum, removed with a cold snare. Resected and retrieved. - Moderate diverticulosis in the sigmoid colon. There was evidence of diverticular spasm. - Moderate Internal hemorrhoids. - The examination of the colon and terminal ileum was otherwise normal on direct and retroflexion views. - Biopsies were taken with a cold forceps from the transverse colon, descending colon and sigmoid colon for evaluation of microscopic colitis. Recommendation: - Repeat colonoscopy in 3 years for surveillance. Procedure Code(s): --- Professional --- 76786, Colonoscopy, flexible; with removal of tumor(s), polyp(s), or other lesion(s) by snare technique 26113, 59, Colonoscopy, flexible; with biopsy, single or multiple Diagnosis Code(s): --- Professional --- K63.5, Polyp of colon K64.8, Other hemorrhoids K55.9, Vascular disorder of intestine, unspecified K57.30, Diverticulosis of large intestine without perforation or abscess without bleeding R93.3, Abnormal findings on diagnostic imaging of other parts of digestive tract CPT copyright 2019 [employer]. All rights reserved. The codes documented in this report are preliminary and upon retail sales specialist review may be revised to meet current compliance requirements. Daryn oLpez MD Daryn Lopez MD 01/05/2021 9:40:36 AM Electronically signed by Daryn Lopez MD Number of Addenda: 0 Note Initiated On: 01/05/2021 9:00 AM Estimated Blood Loss: Estimated blood loss: none.
[2021-01-05 10:12] VITALS: BP 117/70
== END 2021-01-05 10:20 | disposition home or self-care (01) ==
LOC: M OPP 07:54
PROVIDERS: ATTEND Internal Medicine Gastroenterology
DX: K63.5 Polyp of colon (principal); K64.8 Other hemorrhoids; K55.9 Vascular disorder of intestine, unspecified; K57.30 Diverticulosis of large intestine without perforation or abscess without bleeding; R93.3 Abnormal findings on diagnostic imaging of other parts of digestive tract; I25.119 Atherosclerotic heart disease of native coronary artery with unspecified angina pectoris; Z79.82 Long term (current) use of aspirin; Z79.899 Other long term (current) drug therapy

== ENCOUNTER → 2021-02-10 | Outpatient (CLI) | payer MEDICAID, OTHER, SELFPAY ==
[~2021-02-10] MED LIST changes: -NS 1,000 ML IV ONE
--- NOTE | 2021-02-10 09:48 | REP ---
INDICATION: PAIN IN LEFT HIP COMPARISON: None. TECHNIQUE: AP and frog-lateral views of the left hip FINDINGS: Age-related changes include subtle increased sclerosis to the acetabulum with moderate joint space narrowing. No further overt osteoarthritic or significant degenerative changes are appreciated. No evidence for acute or healed injury. Surrounding soft tissues are normal. IMPRESSION: Moderate age-related changes. <Electronically signed by Adan Kunz > 02/10/21 0944
== END ==
LOC: M RAD 09:23
PROVIDERS: ATTEND Nurse Practitioner Family
DX: M25.552 Pain in left hip (principal)

== ENCOUNTER → 2022-10-05 | Outpatient (CLI) | payer OTHER ==
[~2022-10-05] MED LIST changes: -GOOD81CH2 PO; -LISI20TA20 PO; +LISI20TA37 PO; +RA A81CH3 PO
[2022-10-05 12:55] LABS: BASO # 0.1 10^3/uL (0.0-0.2); EOS # 0.3 10^3/uL (0.0-0.5); EOS % 3.8 % (0.0-3.0); HEMATOCRIT 49.2 % (42.0-52.0); HEMOGLOBIN 16.2 g/dl (13.5-17.5); LYMPH # 1.9 10^3/uL (1.5-5.0); LYMPH % 22.4 % (24.0-44.0); MEAN CORPUSCULAR HEMOGLOBIN 30.5 pg (27.0-33.0); MEAN CORPUSCULAR HGB CONC 32.9 g/dl (32.0-36.5); MEAN CORPUSCULAR VOLUME 92.5 fl (80.0-96.0); MONO # 0.8 10^3/uL (0.0-0.8); MONO % 9.4 % (2.0-8.0); NEUTROPHILS # 5.2 10^3/uL (1.5-8.5); NEUTROPHILS % 63.3 % (36.0-66.0); PLATELET COUNT, AUTOMATED 191 10^3/uL (150-450); RED BLOOD COUNT 5.32 10^6/uL (4.30-6.10); WHITE BLOOD COUNT 8.3 10^3/uL (4.0-10.0)
[2022-10-05 14:14] LABS: ALBUMIN 3.8 G/DL (3.2-5.2); ALKALINE PHOSPHATASE 72 U/L (46-116); ALT/SGPT 28 U/L (7.0-40); AST/SGOT 36 U/L (<34); BILIRUBIN,TOTAL 0.9 MG/DL (0.3-1.2); BLOOD UREA NITROGEN 24 MG/DL (9-23); CALCIUM LEVEL 9.8 MG/DL (8.3-10.6); CARBON DIOXIDE LEVEL 29 MMOL/L (20-31); CHLORIDE LEVEL 102 MMOL/L (98-107); CHOLESTEROL LEVEL 114 MG/DL (<200); CHOLESTEROL RISK RATIO 3.11 (<5); CREATININE FOR GFR 1.03 MG/DL (0.70-1.30); GLOMERULAR FILTRATION RATE > 60.0 (>49); GLUCOSE, FASTING 97 MG/DL (74-106); HDL CHOLESTEROL 36.6 MG/DL (>40); LDL CHOLESTEROL 57.4 MG/DL (<100); NON-HDL-C 77 MG/DL; POTASSIUM SERUM 4.6 MMOL/L (3.5-5.1); SODIUM LEVEL 140 MMOL/L (136-145); THYROID STIMULATING HORMONE 2.573 uIU/ML (0.55-4.78); TOTAL PROTEIN 6.9 G/DL (5.7-8.2); TRIGLYCERIDES LEVEL 100 MG/DL (<150)
== END ==
LOC: M WUC 09:07
PROVIDERS: ATTEND Family Medicine
DX: E66.9 Obesity, unspecified (principal); E78.5 Hyperlipidemia, unspecified; R00.2 Palpitations

== ENCOUNTER 2022-12-03 18:29 | Inpatient (IN) | payer OTHER ==
[~2022-12-03] VITALS: Ht 170.2 cm; Wt 103.4 kg
[2022-12-03] MEDS ORDERED: CARVedilol 12.5 MG TAB PO ONE (19:10)
[2022-12-03] MEDS: METOPROLOL 5 MG/5 ML VIAL IV SCH ×3 (19:14→19:56)
[2022-12-03 19:21] LABS: BASO # 0.1 10^3/uL (0.0-0.2); BASO % 0.4 % (0.0-1.0); EOS # 0.1 10^3/uL (0.0-0.5); EOS % 0.8 % (0.0-3.0); HEMATOCRIT 47.3 % (42.0-52.0); LYMPH % 14.4 % (24.0-44.0); MEAN CORPUSCULAR HEMOGLOBIN 30.5 pg (27.0-33.0); MEAN CORPUSCULAR HGB CONC 33.8 g/dl (32.0-36.5); MEAN CORPUSCULAR VOLUME 90.3 fl (80.0-96.0); MONO % 12.1 % (2.0-8.0); NEUTROPHILS # 9.9 10^3/uL (1.5-8.5); NEUTROPHILS % 72.1 % (36.0-66.0); PLATELET COUNT, AUTOMATED 195 10^3/uL (150-450); RED BLOOD COUNT 5.24 10^6/uL (4.30-6.10); WHITE BLOOD COUNT 13.7 10^3/uL (4.0-10.0)
[2022-12-03 19:40] LABS: MONO # 1.7 10^3/uL (0.0-0.8)
[2022-12-03 19:45] LABS: BLOOD UREA NITROGEN 20 MG/DL (9-23); CALCIUM LEVEL 9.1 MG/DL (8.3-10.6); CARBON DIOXIDE LEVEL 26 MMOL/L (20-31); CHLORIDE LEVEL 106 MMOL/L (98-107); CK-MB VALUE MASS 1.8 NG/ML (<3.6); CREATININE FOR GFR 0.88 MG/DL (0.70-1.30); GLOMERULAR FILTRATION RATE > 60.0 (>49); GLUCOSE, FASTING 142 MG/DL (74-106); MAGNESIUM LEVEL 1.9 MG/DL (1.8-2.4); POTASSIUM SERUM 4.1 MMOL/L (3.5-5.1); SODIUM LEVEL 140 MMOL/L (136-145)
[2022-12-03 19:47] LABS: CPK CREATINE PHOSPHOKINASE 160 U/L (46-171); MB/CK RELATIVE INDEX 1.12 (< OR =4)
[2022-12-03] MEDS ORDERED: EZETIMIBE 10MG TABLET (ZETIA) PO SCH (21:00)
[2022-12-03] MEDS ORDERED: EZETIMIBE 10MG TABLET (ZETIA) PO ONE (21:00)
[2022-12-03] MEDS ORDERED: PRAVASTATIN 20 MG TAB PO ONE (21:00)
[2022-12-03] MEDS ORDERED: AMIODARONE HCL 150 MG in IV 1 EA IV STA ×2 (21:27→22:37)
[2022-12-03] MEDS ORDERED: APIXABAN 5 MG TAB (ELIQUIS) PO ONE (21:30)
[2022-12-03] MEDS ORDERED: HOME MED LIST COMPLETE! XX SCH (21:45)
[2022-12-03 22:25] LABS: RSV AMPLIFICATION NEGATIVE (NEGATIVE)
[2022-12-03] MEDS ORDERED: ALBUTEROL 90 MCG/ACT 8GM HFA INHALER INH PRN (22:45)
[2022-12-03] MEDS ORDERED: ACETAMINOPHEN TAB 650MG DOSE (2X325MG) PO PRN (22:45)
[2022-12-03 23:22] VITALS: BP 137/89
[2022-12-04] MEDS: IPRATROPIUM 0.02% SOLN 0.5MG 2.5ML NEB NEB SCH ×2 (02:00→07:09)
[2022-12-04 03:23] VITALS: BP 139/81
[2022-12-04] MEDS ORDERED: METOPROLOL 5 MG/5 ML VIAL IV STA (03:27)
[2022-12-04 03:41] VITALS: BP 136/63
[2022-12-04] MEDS ORDERED: DIGOXIN INJ 0.5 MG/2 ML AMP IV STA (04:10)
[2022-12-04 04:48] VITALS: BP 118/79
[2022-12-04 06:20] LABS: BLOOD UREA NITROGEN 16 MG/DL (9-23); CALCIUM LEVEL 8.8 MG/DL (8.3-10.6); CARBON DIOXIDE LEVEL 25 MMOL/L (20-31); CHLORIDE LEVEL 105 MMOL/L (98-107); CREATININE FOR GFR 0.92 MG/DL (0.70-1.30); GLOMERULAR FILTRATION RATE > 60.0 (>49); GLUCOSE, FASTING 126 MG/DL (74-106); POTASSIUM SERUM 3.7 MMOL/L (3.5-5.1); SODIUM LEVEL 139 MMOL/L (136-145)
[2022-12-04 06:23] LABS: THYROID STIMULATING HORMONE 2.527 uIU/ML (0.55-4.78)
[2022-12-04 06:27] VITALS: BP 118/79
[2022-12-04 07:28] VITALS: BP 132/86
[2022-12-04] MEDS ORDERED: ADVAIR HFA 115/21MCG INHALER INH SCH (08:00)
[2022-12-04] MEDS ORDERED: APIXABAN 5 MG TAB (ELIQUIS) PO SCH (09:00)
[2022-12-04] MEDS ORDERED: CARVedilol 12.5 MG TAB PO SCH (09:00)
[2022-12-04] MEDS ORDERED: AMIODARONE 200 MG TAB (PACERONE) PO SCH (09:00)
[2022-12-04] MEDS ORDERED: ASPIRIN 81MG CHEW TABLET PO SCH (09:00)
[2022-12-04] MEDS ORDERED: MULTIVITAMINS/MINERALS THERAP 1 TAB PO SCH (09:00)
[2022-12-04 10:28] LABS: BASO % 0.2 % (0.0-1.0); EOS % 0.2 % (0.0-3.0); HEMATOCRIT 46.6 % (42.0-52.0); HEMOGLOBIN 15.7 g/dl (13.5-17.5); LYMPH # 1.4 10^3/uL (1.5-5.0); LYMPH % 9.7 % (24.0-44.0); MEAN CORPUSCULAR HEMOGLOBIN 30.8 pg (27.0-33.0); MEAN CORPUSCULAR HGB CONC 33.7 g/dl (32.0-36.5); MEAN CORPUSCULAR VOLUME 91.4 fl (80.0-96.0); MONO # 1.1 10^3/uL (0.0-0.8); MONO % 7.9 % (2.0-8.0); NEUTROPHILS # 11.5 10^3/uL (1.5-8.5); NEUTROPHILS % 81.7 % (36.0-66.0); PLATELET COUNT, AUTOMATED 171 10^3/uL (150-450); WHITE BLOOD COUNT 14.1 10^3/uL (4.0-10.0)
[2022-12-04] MEDS ORDERED: MAGNESIUM OXIDE 400MG TAB (MAG-OX) PO ONE (11:00)
[2022-12-04] MEDS ORDERED: POTASSIUM CHLORIDE 10MEQ SR TABLET PO ONE (11:00)
[2022-12-04 11:22] VITALS: BP 128/90
[2022-12-04] MEDS ORDERED: AMIO200T49 PO (12:24)
[2022-12-04] MEDS ORDERED: ELIQ5TAB PO (12:26)
[2022-12-04] MEDS ORDERED: EZETIMIBE 10MG TABLET (ZETIA) PO SCH (21:00)
[2022-12-04] MEDS ORDERED: PRAVASTATIN 20 MG TAB PO SCH (21:00)
== END 2022-12-04 14:00 | disposition home or self-care (01) | DRG 201 ==
LOC: M ED 18:29 → M ED INP 22:41 → M PCU 23:22
PROVIDERS: ADMIT Internal Medicine; ATTEND Internal Medicine
DX: I48.19 Other persistent atrial fibrillation (principal); I10 Essential (primary) hypertension; D72.829 Elevated white blood cell count, unspecified; I25.10 Atherosclerotic heart disease of native coronary artery without angina pectoris; Z87.891 Personal history of nicotine dependence; I44.7 Left bundle-branch block, unspecified; Z88.8 Allergy status to other drugs, medicaments and biological substances; Z79.899 Other long term (current) drug therapy; E78.5 Hyperlipidemia, unspecified; E66.9 Obesity, unspecified

== ENCOUNTER 2022-12-08 09:17 | Emergency (ER) | payer OTHER ==
[~2022-12-08] VITALS: Ht 170.2 cm; Wt 102.0 kg
[~2022-12-08 09:17] MED LIST changes: +AMIO200T49 PO; +ELIQ5TAB PO
[2022-12-08 09:50] LABS: HEMATOCRIT 42.9 % (42.0-52.0); HEMOGLOBIN 14.9 g/dl (13.5-17.5); MEAN CORPUSCULAR HEMOGLOBIN 30.9 pg (27.0-33.0); MEAN CORPUSCULAR HGB CONC 34.7 g/dl (32.0-36.5); PLATELET COUNT, AUTOMATED 190 10^3/uL (150-450); RED BLOOD COUNT 4.82 10^6/uL (4.30-6.10); WHITE BLOOD COUNT 18.7 10^3/uL (4.0-10.0)
[2022-12-08 10:11] LABS: CK-MB VALUE MASS < 1.0 NG/ML (<3.6); LIPASE 33 U/L (12-53)
[2022-12-08 10:13] LABS: ALBUMIN 3.4 G/DL (3.2-5.2); ALKALINE PHOSPHATASE 88 U/L (46-116); ALT/SGPT 68 U/L (7.0-40); AST/SGOT 51 U/L (<34); BILIRUBIN,DIRECT 0.5 MG/DL (<0.4); BILIRUBIN,TOTAL 1.3 MG/DL (0.3-1.2); BLOOD UREA NITROGEN 20 MG/DL (9-23); CALCIUM LEVEL 8.7 MG/DL (8.3-10.6); CARBON DIOXIDE LEVEL 28 MMOL/L (20-31); CHLORIDE LEVEL 101 MMOL/L (98-107); CPK CREATINE PHOSPHOKINASE 114 U/L (46-171); CREATININE FOR GFR 1.01 MG/DL (0.70-1.30); GLOMERULAR FILTRATION RATE > 60.0 (>49); GLUCOSE, FASTING 127 MG/DL (74-106); MB/CK RELATIVE INDEX 0.87 (< OR =4); POTASSIUM SERUM 3.5 MMOL/L (3.5-5.1); SODIUM LEVEL 135 MMOL/L (136-145); TOTAL PROTEIN 6.4 G/DL (5.7-8.2)
[2022-12-08 10:40] LABS: ATYPICAL LYMPH 5 % (0-5); LYMPHOCYTES 9 % (16-44); MONOCYTES 7 % (0-5); NEUTROPHILS 78 % (28-66)
[2022-12-08 10:42] LABS: PLATELET ESTIMATE NORMAL (NORMAL); TOXIC VACUOLATION 2+
[2022-12-08 11:26] LABS: CK-MB VALUE MASS 1.2 NG/ML (<3.6)
[2022-12-08 11:28] LABS: MB/CK RELATIVE INDEX 1.21 (< OR =4)
[2022-12-08 13:22] LABS: CK-MB VALUE MASS < 1.0 NG/ML (<3.6); CPK CREATINE PHOSPHOKINASE 100 U/L (46-171)
[2022-12-08] MEDS ORDERED: ISOVUE-370 76% 100ML VIAL As Ordered ONE (13:27)
[2022-12-08 14:00] VITALS: BP 138/72
[2022-12-08] MEDS ORDERED: AMOX500T PO (14:20)
== END 2022-12-08 14:29 | disposition home or self-care (01) ==
LOC: M ED 09:17
DX: J18.9 Pneumonia, unspecified organism (principal); R07.9 Chest pain, unspecified; I44.7 Left bundle-branch block, unspecified; E78.5 Hyperlipidemia, unspecified; J44.9 Chronic obstructive pulmonary disease, unspecified; Z88.1 Allergy status to other antibiotic agents; Z86.79 Personal history of other diseases of the circulatory system; Z87.891 Personal history of nicotine dependence; Z79.810 Long term (current) use of selective estrogen receptor modulators (SERMs); Z79.01 Long term (current) use of anticoagulants; Z79.2 Long term (current) use of antibiotics
CPT/HCPCS: 36415; 71045; 71275; 80048; 80076; 82550; 82553; 83690; 85025; 85379; 93005; 93041; 94760; 99285; Q9967

== ENCOUNTER → 2023-04-13 | Outpatient (CLI) | payer OTHER ==
[~2023-04-13] MED LIST changes: +AMOX500T PO; +ASPI-663 PO; -RA A81CH3 PO
== END ==
LOC: M CARPUL 08:25
PROVIDERS: ATTEND Family Medicine
DX: J44.9 Chronic obstructive pulmonary disease, unspecified (principal)

== ENCOUNTER 2024-06-18 07:48 | Emergency (ER) | payer OTHER ==
[~2024-06-18] VITALS: Ht 170.2 cm; Wt 100.7 kg
[~2024-06-18 07:48] MED LIST changes: +AMLO1TAB24 PO; +ASPI81TA26 PO; +THERTAB52 PO
[2024-06-18] MEDS ORDERED: ELIQ5TAB PO (13:18)
[2024-06-18] MEDS ORDERED: HOME MED LIST COMPLETE! XX SCH (13:20)
[2024-06-18] MEDS ORDERED: IBUP80TA PO (16:03)
[2024-06-18 16:21] VITALS: BP 117/64; TEMP 97.4; O2SAT 96
== END 2024-06-18 16:23 | disposition home or self-care (01) ==
LOC: M ED 07:48
DX: M25.562 Pain in left knee (principal); M25.40 Effusion, unspecified joint; Z86.79 Personal history of other diseases of the circulatory system; Z79.01 Long term (current) use of anticoagulants; Z79.82 Long term (current) use of aspirin; Z79.811 Long term (current) use of aromatase inhibitors; Z79.899 Other long term (current) drug therapy; Z88.1 Allergy status to other antibiotic agents; Z88.8 Allergy status to other drugs, medicaments and biological substances

== ENCOUNTER 2024-10-03 07:34 | Day surgery (SDC) | payer OTHER ==
[~2024-10-03] VITALS: Ht 170.2 cm; Wt 98.8 kg
[~2024-10-03 07:34] MED LIST changes: +IBUP80TA PO; +VANC125C13 PO; -VANC125C3 PO
[2024-10-03] MEDS ORDERED: LIDOCAINE 2% 100MG/5ML SDV (FOR ANES.) As Ordered ONE (07:55)
[2024-10-03] MEDS ORDERED: propofoL 200 MG/20 ML VIAL As Ordered ONE (07:56)
[2024-10-03 09:25] VITALS: BP 137/87; TEMP 97.2; O2SAT 97
== END 2024-10-03 09:31 | disposition home or self-care (01) ==
LOC: M OPP 07:34
PROVIDERS: ATTEND Internal Medicine Gastroenterology
DX: D12.0 Benign neoplasm of cecum (principal); D12.2 Benign neoplasm of ascending colon; D12.4 Benign neoplasm of descending colon; K57.30 Diverticulosis of large intestine without perforation or abscess without bleeding; Z86.0100 Personal history of colon polyps, unspecified; I48.91 Unspecified atrial fibrillation; Z95.5 Presence of coronary angioplasty implant and graft; Z86.73 Personal history of transient ischemic attack (TIA), and cerebral infarction without residual deficits; Z88.1 Allergy status to other antibiotic agents; Z79.82 Long term (current) use of aspirin; Z79.01 Long term (current) use of anticoagulants; Z79.899 Other long term (current) drug therapy

== ENCOUNTER → 2024-10-04 | Outpatient (CLI) | payer OTHER ==
[2024-10-04 14:25] LABS: BASO # 0.1 10^3/uL (0.0-0.2); BASO % 0.6 % (0.0-1.0); EOS # 0.4 10^3/uL (0.0-0.5); EOS % 3.8 % (0.0-3.0); HEMATOCRIT 48.1 % (42.0-52.0); HEMOGLOBIN 15.8 g/dl (13.5-17.5); LYMPH # 1.4 10^3/uL (1.5-5.0); LYMPH % 13.4 % (24.0-44.0); MEAN CORPUSCULAR HEMOGLOBIN 30.7 pg (27.0-33.0); MEAN CORPUSCULAR HGB CONC 32.8 g/dl (32.0-36.5); MEAN CORPUSCULAR VOLUME 93.4 fl (80.0-96.0); MONO % 9.6 % (2.0-8.0); NEUTROPHILS # 7.3 10^3/uL (1.5-8.5); NEUTROPHILS % 72.2 % (36.0-66.0); PLATELET COUNT, AUTOMATED 187 10^3/uL (150-450); RED BLOOD COUNT 5.15 10^6/uL (4.30-6.10); WHITE BLOOD COUNT 10.1 10^3/uL (4.0-10.0)
[2024-10-04 14:44] LABS: ALBUMIN 3.6 G/DL (3.2-5.2); ALKALINE PHOSPHATASE 71 U/L (40-129); ALT/SGPT 21 U/L (7.0-40); AST/SGOT 20 U/L (<34); BILIRUBIN,TOTAL 1.1 MG/DL (0.3-1.2); BLOOD UREA NITROGEN 21 MG/DL (9-23); CALCIUM LEVEL 9.6 MG/DL (8.3-10.6); CARBON DIOXIDE LEVEL 33 MMOL/L (20-31); CHLORIDE LEVEL 105 MMOL/L (98-107); CHOLESTEROL LEVEL 119 MG/DL (<200); CHOLESTEROL RISK RATIO 3.77 (<5); CREATININE FOR GFR 1.02 MG/DL (0.70-1.30); GLOMERULAR FILTRATION RATE > 60.0 (>49); GLUCOSE, FASTING 83 MG/DL (74-106); HDL CHOLESTEROL 31.5 MG/DL (>40); LDL CHOLESTEROL 57.1 MG/DL (<100); NON-HDL-C 87.5 MG/DL; SODIUM LEVEL 141 MMOL/L (136-145); TOTAL PROTEIN 6.8 G/DL (5.7-8.2); TRIGLYCERIDES LEVEL 152 MG/DL (<150)
[2024-10-04 14:54] LABS: HEMOGLOBIN A1c 5.4 % (4.0-6.0)
== END ==
LOC: M WUC 11:01
PROVIDERS: ATTEND Family Medicine
DX: Z00.00 Encounter for general adult medical examination without abnormal findings (principal)